=== PATIENT | male | born 1955 | race Caucasian/White ===

== ENCOUNTER → 2022-07-26 | Outpatient (CLI) | payer OTHER, SELFPAY ==
[~2022-07-26] MED LIST: BAYE81TA10 PO; COQ-100C5 PO; CURC500C PO; ELIQ5TAB PO; EZET10TA21 PO; LEVO100T5 PO; MELO15TA28 PO; METO1TAB87 PO; METO37.5 PO; PANT40TA29 PO; ROSU5TAB5 PO; TIKO500C PO; VITA1CAP25 PO
== END ==
LOC: M LABSMTC 09:30
PROVIDERS: ATTEND Anesthesiology
DX: Z01.812 Encounter for preprocedural laboratory examination (principal); Z11.52 Encounter for screening for COVID-19

== ENCOUNTER 2022-07-29 06:55 | Day surgery (SDC) | payer OTHER ==
[~2022-07-29] VITALS: Ht 182.9 cm; Wt 91.2 kg
[~2022-07-29 06:55] MED LIST changes: +NS 1,000 ML IV ONE; +SIMETHICONE 40MG/0.6ML DROPS 30ML As Ordered ONE
[2022-07-29] MEDS ORDERED: LIDOCAINE 2% 100MG/5ML SDV (FOR ANES.) As Ordered ONE (07:35)
[2022-07-29] MEDS ORDERED: propofoL 200 MG/20 ML VIAL As Ordered ONE (07:35)
[2022-07-29 08:30] VITALS: BP 111/76
== END 2022-07-29 08:38 | disposition home or self-care (01) ==
LOC: M OPP 06:55
PROVIDERS: ATTEND Internal Medicine Gastroenterology
DX: Z12.11 Encounter for screening for malignant neoplasm of colon (principal); K64.0 First degree hemorrhoids; I48.91 Unspecified atrial fibrillation; I10 Essential (primary) hypertension; Z95.5 Presence of coronary angioplasty implant and graft; Z87.891 Personal history of nicotine dependence; Z79.01 Long term (current) use of anticoagulants; Z79.02 Long term (current) use of antithrombotics/antiplatelets; Z79.1 Long term (current) use of non-steroidal anti-inflammatories (NSAID); Z79.82 Long term (current) use of aspirin; Z79.890 Hormone replacement therapy; Z79.899 Other long term (current) drug therapy; Z88.1 Allergy status to other antibiotic agents; Z88.2 Allergy status to sulfonamides

== ENCOUNTER → 2023-10-11 | Outpatient (CLI) | payer OTHER ==
[~2023-10-11] MED LIST changes: -NS 1,000 ML IV ONE; +ROSU5TAB40 PO; -ROSU5TAB5 PO; -SIMETHICONE 40MG/0.6ML DROPS 30ML As Ordered ONE
== END ==
LOC: M RAD 10:02
PROVIDERS: ATTEND Internal Medicine
DX: N20.1 Calculus of ureter (principal)

== ENCOUNTER → 2024-02-02 | Outpatient (CLI) | payer OTHER ==
[~2024-02-02] MED LIST changes: -TIKO500C PO; +TIKO500C2 PO
== END ==
LOC: M RAD 13:10
PROVIDERS: ATTEND Nurse Practitioner Family
DX: N20.0 Calculus of kidney (principal); R31.9 Hematuria, unspecified

== ENCOUNTER 2024-04-05 09:50 | Day surgery (SDC) | payer OTHER ==
[~2024-04-05] VITALS: Ht 185.4 cm; Wt 92.4 kg
[~2024-04-05 09:50] MED LIST changes: +FINA5TAB2 PO; +TAMS1CAP17 PO
[2024-04-05] MEDS ORDERED: LR 1,000 ML IV SCH (09:55)
[2024-04-05] MEDS ORDERED: NS 1,000 ML IV SCH (09:55)
[2024-04-05] MEDS ORDERED: CELE1CAP99 PO (10:21)
[2024-04-05] MEDS ORDERED: propofoL 200 MG/20 ML VIAL As Ordered ONE (10:53)
[2024-04-05] MEDS ORDERED: ONDANSETRON 4MG 2ML VIAL As Ordered ONE (10:53)
[2024-04-05] MEDS ORDERED: LIDOCAINE 2% 100MG/5ML SDV (FOR ANES.) As Ordered ONE (10:53)
[2024-04-05] MEDS ORDERED: ACETAMINOPHEN 1000MG 100ML IV BAG As Ordered ONE (10:54)
[2024-04-05] MEDS: ceFAZolin SOD 2 GM in IV 1 EA IV ONE (11:10)
[2024-04-05] MEDS: LIDOCAINE 1% SDV 30ML VIAL As Ordered ONE (11:16)
[2024-04-05 12:23] VITALS: BP 100/61; TEMP 97.8; O2SAT 95
== END 2024-04-05 12:28 | disposition home or self-care (01) ==
LOC: M SDC 09:50
PROVIDERS: ATTEND Podiatrist Foot & Ankle Surgery
DX: M85.871 Other specified disorders of bone density and structure, right ankle and foot (principal); M10.9 Gout, unspecified; I48.91 Unspecified atrial fibrillation; I25.10 Atherosclerotic heart disease of native coronary artery without angina pectoris; Z95.5 Presence of coronary angioplasty implant and graft; Z88.2 Allergy status to sulfonamides; Z79.899 Other long term (current) drug therapy
CPT/HCPCS: 28122; 88302; J0131; J0665; J0690; J1100; J2405

== ENCOUNTER → 2024-05-23 | Outpatient (CLI) | payer OTHER ==
[~2024-05-23] MED LIST changes: +CELE1CAP99 PO; -ROSU5TAB40 PO; +ROSU5TAB49 PO
[2024-05-25 13:11] LABS: PSA FREE 0.2 ng/mL
== END ==
LOC: M PLALAB 08:40
PROVIDERS: ATTEND Physician Assistant
DX: R97.20 Elevated prostate specific antigen [PSA] (principal)

== ENCOUNTER → 2024-08-30 | Outpatient (CLI) | payer MEDICARE, OTHER | LOC: M PLAIMG 14:12 | PROVIDERS: ATTEND Physician Assistant | DX: N23 Unspecified renal colic (principal); N20.0 Calculus of kidney ==

== ENCOUNTER → 2025-03-16 | Outpatient (CLI) | payer MEDICARE ==
[~2025-03-16] MED LIST changes: -EZET10TA21 PO; +EZET10TA57 PO
== END ==
LOC: M RAD 11:08
PROVIDERS: ATTEND Physician Assistant
DX: N28.89 Other specified disorders of kidney and ureter (principal); R97.20 Elevated prostate specific antigen [PSA]; N20.0 Calculus of kidney